=== PATIENT | male | born 1970 | race Caucasian/White ===

== ENCOUNTER 2022-05-18 11:36 | Emergency (ER) | payer OTHER, BC | END 2022-05-18 15:08 | disposition home or self-care (01) | LOC: ERS 11:36 | DX: S06.9X1A Unspecified intracranial injury with loss of consciousness of 30 minutes or less, initial encounter (principal); I10 Essential (primary) hypertension; Z79.899 Other long term (current) drug therapy; W01.198A Fall on same level from slipping, tripping and stumbling with subsequent striking against other object, initial encounter | CPT/HCPCS: 70450; 72170 ==